=== PATIENT | female | born 1960 | race African-American/Black ===

== ENCOUNTER 2017-09-27 20:57 | Emergency (ER) | payer OTHER ==
[~2017-09-27] VITALS: Ht 165.1 cm; Wt 130.2 kg
[~2017-09-27 20:57] MED LIST: TRAMADOL 50 MG50 MG PO
[2017-09-27] MEDS ORDERED: BENAZEPRIL HCL20 MG PO (21:58)
[2017-09-27] MEDS ORDERED: NORVASC10 MG PO (21:59)
[2017-09-27] MEDS ORDERED: CRESTOR20 MG PO (21:59)
[2017-09-27] MEDS ORDERED: ACYCLOVIR 400400 MG PO (22:00)
[2017-09-27] MEDS ORDERED: TRAZODONE HCL50 MG PO (22:00)
[2017-09-27] MEDS ORDERED: OMEPRAZOLE40 MG PO (22:02)
[2017-09-27] MEDS ORDERED: ASPIRIN325 PO (22:02)
[2017-09-27] MEDS ORDERED: PERCOCET 10-321 EACH PO (22:03)
[2017-09-27] MEDS ORDERED: BENADRYL25 MG PO (22:04)
[2017-09-27 22:50] VITALS: BP 157/72
== END 2017-09-27 22:55 | disposition home or self-care (01) ==
LOC: ER 20:57
DX: M25.561 Pain in right knee (principal); J45.909 Unspecified asthma, uncomplicated; I10 Essential (primary) hypertension; E11.9 Type 2 diabetes mellitus without complications; E78.00 Pure hypercholesterolemia, unspecified; Z90.710 Acquired absence of both cervix and uterus; Z88.5 Allergy status to narcotic agent

== ENCOUNTER 2018-10-16 05:18 | Emergency (ER) | payer OTHER ==
[~2018-10-16] VITALS: Ht 162.6 cm; Wt 133.4 kg
[~2018-10-16 05:18] MED LIST changes: +ACYCLOVIR 400400 MG PO; +ASPIRIN325 PO; +BENADRYL25 MG PO; +BENAZEPRIL HCL20 MG PO; +CRESTOR20 MG PO; +NORVASC10 MG PO; +OMEPRAZOLE40 MG PO; +PERCOCET 10-321 EACH PO; +TRAZODONE HCL50 MG PO
[2018-10-16 06:32] LABS: ABSOLUTE NEUTROPHILS 9.8 thou/uL (1.4-8.2); BASOPHILS 0.2 % (0.0-2.0); HEMATOCRIT 36.4 % (37.0-47.0); HEMOGLOBIN 12.4 gm/dL (12.0-15.0); LYMPHOCYTES 5.8 % (24.0-44.0); MCH 31.7 pg (26.0-34.0); MONOCYTES 3.1 % (1.0-8.0); PLATELET COUNT 214 thou/uL (150-400); POLYS 90.9 % (36.0-66.0); RBC 3.92 mil/uL (4.20-5.00); RDW 15.1 % (10.5-14.5); WBC 10.8 thou/uL (4.0-11.0)
[2018-10-16 06:42] LABS: CALCIUM 8.7 mg/dL (8.5-10.1); POTASSIUM 4.2 mmol/L (3.5-5.1)
[2018-10-16 07:03] LABS: BE(vivo) -3.1 mmol/L (-2 to +3); HCO3 20.4 mmol/L (22.0-26.0); PCO2 31.9 mmHg (35.0-45.0); PO2 74.5 mmHg (80.0-100.0); pH 7.424 (7.360-7.450); sO2 95.4 % (92.0-98.0)
[2018-10-16 10:15] VITALS: BP 188/78
== END 2018-10-16 10:16 | disposition short-term general hospital (02) ==
LOC: ER 05:18
PROVIDERS: Emergency Medicine; Student in an Organized Health Care Education/Training Program
DX: G89.18 Other acute postprocedural pain (principal); R10.84 Generalized abdominal pain; R74.0 Nonspecific elevation of levels of transaminase and lactic acid dehydrogenase [LDH]; J45.909 Unspecified asthma, uncomplicated; I10 Essential (primary) hypertension; E78.00 Pure hypercholesterolemia, unspecified; E11.9 Type 2 diabetes mellitus without complications; Z90.710 Acquired absence of both cervix and uterus; Z88.5 Allergy status to narcotic agent